=== PATIENT | female | born 1970 | race Asian ===

== ENCOUNTER 2019-05-03 12:48 | Emergency (ER) | payer BC ==
[~2019-05-03] VITALS: Ht 152.4 cm; Wt 73.0 kg
[~2019-05-03 12:48] MED LIST: HYDR-4354 PO
--- NOTE | 2019-05-03 13:11 | NUR ---
BIB SELF C/O R LEG PAIN AND SWELLING STARTED APR 27, [place] LAST Mar. TO ER BED 4, HOOKED TO MONITOR, CHANGED TO HOSPITAL GOWN, PROVIDED W WARM BLANKET, PATIENT AOx4 , BREATHING EVEN AND UNLABORED, AWAITING MD VELOZ.
--- NOTE | 2019-05-03 13:30 | NUR ---
BRAD SOLORIO AT BEDSIDE
[2019-05-03] MEDS ORDERED: HYDROCODONE/APAP 10/325MG 1 EA TABLET ONE (14:26)
[2019-05-03] MEDS: HYDROCODONE/APAP 10/325MG 1 EA TABLET PO ONE (14:28)
--- NOTE | 2019-05-03 14:47 | NUR ---
Patient discharged to home in stable condition. Written and verbal after care instructions given. Patient verbalizes understanding of instruction. iNSTRUCTED NOT TO DRIVE.
[2019-05-03 14:49] VITALS: BP 136/76
== END 2019-05-03 14:53 | disposition home or self-care (01) ==
LOC: ER 12:48
DX: R22.41 Localized swelling, mass and lump, right lower limb (principal); M79.661 Pain in right lower leg; C56.9 Malignant neoplasm of unspecified ovary; Z98.890 Other specified postprocedural states
CPT/HCPCS: 93971-TC